=== PATIENT | male | born 1960 | race Caucasian/White ===

== ENCOUNTER 2017-12-02 20:44 | Emergency (ER) | payer MEDICAID ==
[~2017-12-02] VITALS: Ht 172.7 cm; Wt 92.6 kg
[~2017-12-02 20:44] MED LIST: ALBU2.5V11 NEB; LOSA50TA6 PO; NIAC50TA4 PO; SIMV20TA PO
[2017-12-02] MEDS ORDERED: ONDANSETRON 2MG/ML, 2ML ONE ×2 (21:21→22:37)
[2017-12-02 21:28] LABS: BASOPHILS # (AUTO) 0.05 x10^3/uL (0-0.1); BASOPHILS % (AUTO) 0 % (0-1); EOSINOPHILS # (AUTO) 0.51 x10^3/uL (0-0.4); EOSINOPHILS % (AUTO) 4 % (1-7); LYMPHOCYTES # (AUTO) 2.09 x10^3/uL (1-3.4); LYMPHOCYTES % (AUTO) 16 % (22-44); MD NO; MEAN CORPUSCULAR HEMOGLOBIN 29.3 pg (27.5-34.5); MEAN CORPUSCULAR VOLUME 86.2 fL (81-97); MEAN PLATELET VOLUME 8.3 fL (7.4-10.4); MONOCYTES # (AUTO) 1.15 x10^3/uL (0.2-0.8); MONOCYTES % (AUTO) 9 % (2-9); NEUTROPHILS # (AUTO) 9.19 x10^3/uL (1.8-6.8); NEUTROPHILS % (AUTO) 71 % (42-75); PLATELET COUNT 243 x10^3/uL (130-400); RED BLOOD COUNT 5.36 x10^6/uL (4.38-5.82); RED CELL DISTRIBUTION WIDTH 12.8 % (9.4-14.8)
[2017-12-02] MEDS ORDERED: SODIUM CHLORIDE 0.9% 1,000ML IVBOLUS ONE (21:30)
[2017-12-02] MEDS ORDERED: ONDANSETRON 2MG/ML, 2ML IVPush ONE ×2 (21:30→22:30)
[2017-12-02 21:39] LABS: ALBUMIN 3.9 g/dL (3.4-5.0); ANION GAP 11 mmol/L (5-15); CALCIUM 9.2 mg/dL (8.5-10.1); CHLORIDE 105 mmol/L (98-107)
[2017-12-02 21:42] LABS: ALANINE AMINOTRANSFERASE 32 U/L (12-78); ALKALINE PHOSPHATASE 62 U/L (45-117); BILIRUBIN,TOTAL 0.8 mg/dL (0.2-1.0); CREATININE 1.32 mg/dL (0.7-1.3); TOTAL PROTEIN 7.6 g/dL (6.4-8.2)
[2017-12-02 21:49] LABS: MICROSCOPIC NOT IND
[2017-12-02 21:56] LABS: CULTURE INDICATED? NO
[2017-12-02 22:29] VITALS: BP 136/88
[2017-12-02] MEDS ORDERED: KETOROLAC 30 MG/1 ML ONE (23:10)
[2017-12-02] MEDS ORDERED: KETOROLAC 30 MG/1 ML IVPush ONE (23:30)
== END 2017-12-03 00:13 | disposition home or self-care (01) ==
LOC: ED 23:33
DX: A09 Infectious gastroenteritis and colitis, unspecified (principal); E78.00 Pure hypercholesterolemia, unspecified; J45.909 Unspecified asthma, uncomplicated
CPT/HCPCS: 36415; 80053; 81003; 83690; 85025; 96361; 96374; 96375; 96376; 99284; J1885; J2405; J7030

== ENCOUNTER 2018-05-15 03:33 | Emergency (ER) | payer MEDICAID ==
[~2018-05-15] VITALS: Ht 172.7 cm; Wt 92.2 kg
[2018-05-15] MEDS ORDERED: ALBUTEROL/IPRATROPIUM 2.5MG/0.5MG, 3 ML ONE ×2 (04:07)
[2018-05-15 04:13] LABS: BASOPHILS # (AUTO) 0.06 x10^3/uL (0-0.1); BASOPHILS % (AUTO) 1 % (0-1); EOSINOPHILS # (AUTO) 0.25 x10^3/uL (0-0.4); EOSINOPHILS % (AUTO) 3 % (1-7); LYMPHOCYTES # (AUTO) 2.99 x10^3/uL (1-3.4); LYMPHOCYTES % (AUTO) 31 % (22-44); MD NO; MEAN CORPUSCULAR HEMOGLOBIN 29.2 pg (27.5-34.5); MEAN CORPUSCULAR HGB CONC 34.3 g/dL (33.2-36.2); MEAN CORPUSCULAR VOLUME 85.3 fL (81-97); MEAN PLATELET VOLUME 7.4 fL (7.4-10.4); MONOCYTES # (AUTO) 0.85 x10^3/uL (0.2-0.8); MONOCYTES % (AUTO) 9 % (2-9); NEUTROPHILS # (AUTO) 5.58 x10^3/uL (1.8-6.8); NEUTROPHILS % (AUTO) 57 % (42-75); PLATELET COUNT 293 x10^3/uL (130-400); RED BLOOD COUNT 5.34 x10^6/uL (4.38-5.82); RED CELL DISTRIBUTION WIDTH 13.6 % (9.4-14.8)
[2018-05-15] MEDS: ALBUTEROL/IPRATROPIUM 2.5MG/0.5MG, 3 ML NPPB SCH ×2 (04:16→04:32)
[2018-05-15 04:18] LABS: ALANINE AMINOTRANSFERASE 31 U/L (12-78); ALBUMIN 3.5 g/dL (3.4-5.0); ANION GAP 9 mmol/L (5-15); CALCIUM 8.4 mg/dL (8.5-10.1); CHLORIDE 110 mmol/L (98-107); CREATININE 1.35 mg/dL (0.7-1.3)
[2018-05-15 04:22] LABS: ALKALINE PHOSPHATASE 77 U/L (45-117); BILIRUBIN,TOTAL 0.7 mg/dL (0.2-1.0); TOTAL PROTEIN 6.9 g/dL (6.4-8.2); TROPONIN I < 0.015 ng/mL (0.000-0.045)
[2018-05-15 05:02] VITALS: BP 157/100
== END 2018-05-15 05:16 | disposition home or self-care (01) ==
LOC: ED 05:10
DX: J45.41 Moderate persistent asthma with (acute) exacerbation (principal); J20.9 Acute bronchitis, unspecified
CPT/HCPCS: 36415; 71046; 80053; 83880; 84484; 85025; 93005; 94640; 99285; J7512; J7620

== ENCOUNTER 2020-02-12 19:09 | Emergency (ER) | payer MEDICAID ==
[~2020-02-12] VITALS: Ht 172.7 cm; Wt 89.3 kg
[~2020-02-12 19:09] MED LIST changes: +LOSA50TA14 PO; -LOSA50TA6 PO
[2020-02-12 19:30] VITALS: BP 155/102
[2020-02-12] MEDS ORDERED: INSULIN LISPRO SINGLE DOSE, ER SQ-INSULIN ONE (20:28)
[2020-02-12] MEDS ORDERED: SODIUM CHLORIDE 0.9% 1,000ML IVBOLUS ONE (20:30)
[2020-02-12 20:37] LABS: BASOPHILS % (AUTO) 0 % (0-1); EOSINOPHILS # (AUTO) 0.07 x10^3/uL (0-0.4); EOSINOPHILS % (AUTO) 1 % (1-7); LYMPHOCYTES # (AUTO) 0.98 x10^3/uL (1-3.4); LYMPHOCYTES % (AUTO) 9 % (22-44); MD NO; MEAN CORPUSCULAR HEMOGLOBIN 29.7 pg (27.5-34.5); MEAN CORPUSCULAR HGB CONC 34.7 g/dL (33.2-36.2); MEAN CORPUSCULAR VOLUME 85.5 fL (81-97); MEAN PLATELET VOLUME 8.4 fL (7.4-10.4); MONOCYTES # (AUTO) 0.76 x10^3/uL (0.2-0.8); MONOCYTES % (AUTO) 7 % (2-9); NEUTROPHILS # (AUTO) 9.53 x10^3/uL (1.8-6.8); NEUTROPHILS % (AUTO) 84 % (42-75); PLATELET COUNT 249 x10^3/uL (130-400); RED BLOOD COUNT 5.37 x10^6/uL (4.38-5.82); RED CELL DISTRIBUTION WIDTH 12.5 % (9.4-14.8)
[2020-02-12 20:48] LABS: ALBUMIN 3.6 g/dL (3.4-5.0); ANION GAP 11 mmol/L (5-15); CALCIUM 8.6 mg/dL (8.5-10.1); CHLORIDE 97 mmol/L (98-107)
[2020-02-12 20:51] LABS: ALANINE AMINOTRANSFERASE 43 U/L (12-78); ALKALINE PHOSPHATASE 93 U/L (45-117); BILIRUBIN,TOTAL 0.5 mg/dL (0.2-1.0); CREATININE 1.53 mg/dL (0.7-1.3); TOTAL PROTEIN 7.1 g/dL (6.4-8.2)
[2020-02-12] MEDS ORDERED: SODIUM CHLORIDE 0.9%, 500ML IVBOLUS ONE (21:00)
[2020-02-12 21:04] LABS: MICROSCOPIC NOT IND
[2020-02-12 21:11] LABS: CULTURE INDICATED? NO
[2020-02-13] MEDS ORDERED: INSULIN LISPRO 100 UNIT/ML, 3ML VIAL SQ-INSULIN SCH (07:00)
== END 2020-02-12 22:38 | disposition home or self-care (01) ==
LOC: ED 22:00
DX: E11.65 Type 2 diabetes mellitus with hyperglycemia (principal); I10 Essential (primary) hypertension; J45.909 Unspecified asthma, uncomplicated
CPT/HCPCS: 36415; 80053; 81003; 82962; 83036; 85025; 99283; J7030; J7040

== ENCOUNTER 2020-04-24 11:33 | Inpatient (IN) | payer MEDICAID ==
[~2020-04-24] VITALS: Ht 172.7 cm; Wt 198.0 kg
[2020-04-24] MEDS ORDERED: BIVALIRUDIN 250 MG ONE ×2 (11:36→12:40)
[2020-04-24] MEDS ORDERED: VERAPAMIL 2.5 MG/ML, 2ML ONE (11:36)
[2020-04-24] MEDS ORDERED: FENTANYL PF 100 MCG/2ML ONE (11:36)
[2020-04-24] MEDS ORDERED: LIDOCAINE 2%, 20ML ONE (11:36)
[2020-04-24] MEDS ORDERED: TICAGRELOR 90 MG TABLET ONE (11:36)
[2020-04-24] MEDS ORDERED: MIDAZOLAM 1 MG/ML, 5ML ONE (11:36)
[2020-04-24] MEDS ORDERED: HEPARIN 1,000 UNITS/ML, 10ML ONE (11:36)
--- NOTE | 2020-04-24 11:38 | NUR ---
THIS IS A 59 YEAR OLD MALE WHO WAS BIB BY AMBULANCE DUE TO STEMI. PT BECAME DIAPHORTIC ALONG WITH CP. PT HAS HX OF DM, HTN. PLACED PATIENT ON INSPECTOR FINAL ASSEMBLY MECHANICAL, SINUS, PADS, CONTINOUS SPO2 AND CYCLE VS. PT WAS GIVEN 324 ASA AND 2 NTG. PT STATES PAIN IS 8/10
--- NOTE | 2020-04-24 11:40 | NUR ---
MT: STEMI NOTE - [facility] REPORT CALLED 1126 CODE CARDIAC INITAITED 1128 CARDIOLOGY PAGED 1129 PT ARRIVED 1131 LAST INSERTER AWARE 1132 LAST INSERTER READY 1139
--- NOTE | 2020-04-24 11:42 | NUR ---
THROUGHPUT RN: ATTEMPT 1 TO CALL PT , PER PT REQUEST. MESSAGE LEFT.
--- NOTE | 2020-04-24 11:42 | NUR ---
CLEARANCE REPRESENTATIVE READY, PT TO CLEARANCE REPRESENTATIVE WITH STAFF
[2020-04-24] MEDS ORDERED: METF500T17 PO (11:44)
[2020-04-24 11:47] LABS: BASOPHILS # (AUTO) 0.06 x10^3/uL (0-0.1); BASOPHILS % (AUTO) 1 % (0-1); EOSINOPHILS # (AUTO) 0.38 x10^3/uL (0-0.4); EOSINOPHILS % (AUTO) 5 % (1-7); LYMPHOCYTES # (AUTO) 2.95 x10^3/uL (1-3.4); LYMPHOCYTES % (AUTO) 39 % (22-44); MD NO; MEAN CORPUSCULAR HEMOGLOBIN 29.3 pg (27.5-34.5); MEAN CORPUSCULAR VOLUME 86.2 fL (81-97); MEAN PLATELET VOLUME 8.1 fL (7.4-10.4); MONOCYTES # (AUTO) 0.84 x10^3/uL (0.2-0.8); MONOCYTES % (AUTO) 11 % (2-9); NEUTROPHILS % (AUTO) 45 % (42-75); PLATELET COUNT 224 x10^3/uL (130-400); RED BLOOD COUNT 4.95 x10^6/uL (4.38-5.82); RED CELL DISTRIBUTION WIDTH 12.8 % (9.4-14.8)
[2020-04-24 11:58] LABS: INTERNATIONAL NORMALIZED RATIO 0.92 (0.93-1.1); PROTHROMBIN TIME 9.7 Seconds (9.6-11.5)
[2020-04-24 12:00] LABS: TROPONIN I < 0.015 ng/mL (0.000-0.045)
[2020-04-24] MEDS ORDERED: BIVALIRUDIN 250 MG in SODIUM CHLORIDE 0.9% 50 ML IV SCH (12:39)
[2020-04-24] MEDS ORDERED: LABETALOL 5MG/ML, 20ML IVPush PRN (13:00)
[2020-04-24] MEDS ORDERED: BISACODYL 10 MG SUPP PR PRN (13:00)
[2020-04-24] MEDS ORDERED: ONDANSETRON 2MG/ML, 2ML IVPush PRN (13:00)
[2020-04-24] MEDS ORDERED: ENALAPRILAT 1.25 MG/ML, 2ML IVPush PRN (13:00)
[2020-04-24] MEDS ORDERED: POLYETHYLENE GLYCOL 17 GM PACKET PO PRN (13:00)
[2020-04-24] MEDS ORDERED: OXYcodone IR 5MG TABLET PO PRN (13:00)
[2020-04-24] MEDS ORDERED: morphine SULFATE 10 MG/ML, 1ML IVPush PRN (13:00)
[2020-04-24] MEDS: SODIUM CHLORIDE 0.9% 1,000 ML IV SCH ×2 (14:34→20:39)
[2020-04-24] MEDS: INSULIN LISPRO 100 UNITS/ML, PEN SQ-INSULIN SCH ×2 (15:59→20:38)
[2020-04-24] MEDS: HEPARIN 5,000 UNITS/ML, 1ML SQ SCH ×2 (15:59→23:43)
[2020-04-24] MEDS: ACETAMINOPHEN 325 MG TABLET PO PRN ×2 (15:59→22:23)
[2020-04-24] MEDS: TICAGRELOR 90 MG TABLET PO SCH (20:35)
[2020-04-24 20:42] VITALS: BP 140/95
[2020-04-24] MEDS: DIPHENHYDRAMINE 25 MG CAPSULE PO PRN (22:21)
[2020-04-25 04:00] VITALS: BP 142/96
[2020-04-25] MEDS: SODIUM CHLORIDE 0.9% 1,000 ML IV SCH (04:39)
[2020-04-25 04:47] LABS: BASOPHILS # (AUTO) 0.04 x10^3/uL (0-0.1); BASOPHILS % (AUTO) 0 % (0-1); EOSINOPHILS # (AUTO) 0.35 x10^3/uL (0-0.4); EOSINOPHILS % (AUTO) 4 % (1-7); LYMPHOCYTES # (AUTO) 1.74 x10^3/uL (1-3.4); LYMPHOCYTES % (AUTO) 20 % (22-44); MD NO; MEAN CORPUSCULAR HEMOGLOBIN 28.9 pg (27.5-34.5); MEAN CORPUSCULAR HGB CONC 33.5 g/dL (33.2-36.2); MEAN CORPUSCULAR VOLUME 86.1 fL (81-97); MEAN PLATELET VOLUME 8.4 fL (7.4-10.4); MONOCYTES # (AUTO) 0.84 x10^3/uL (0.2-0.8); MONOCYTES % (AUTO) 10 % (2-9); NEUTROPHILS # (AUTO) 5.81 x10^3/uL (1.8-6.8); NEUTROPHILS % (AUTO) 66 % (42-75); PLATELET COUNT 212 x10^3/uL (130-400)
[2020-04-25] MEDS: ACETAMINOPHEN 325 MG TABLET PO PRN ×3 (04:49→20:41)
[2020-04-25 04:55] LABS: ALBUMIN 3.7 g/dL (3.4-5.0); ANION GAP 8 mmol/L (5-15); CALCIUM 8.6 mg/dL (8.5-10.1); CHLORIDE 107 mmol/L (98-107)
[2020-04-25 05:00] LABS: ALANINE AMINOTRANSFERASE 66 U/L (12-78); ALKALINE PHOSPHATASE 51 U/L (45-117); BILIRUBIN,TOTAL 0.9 mg/dL (0.2-1.0); CHOL/HDL RATIO 5.5; CHOLESTEROL, TOTAL 171 mg/dL (140-239); CREATININE 1.14 mg/dL (0.7-1.3); HDL CHOL % 18 % (26-37); HDL CHOLESTEROL (DIRECT) 31 mg/dL (40-60); TOTAL PROTEIN 7.1 g/dL (6.4-8.2); TRIGLYCERIDES 717 mg/dL (50-200)
[2020-04-25] MEDS: INSULIN LISPRO 100 UNITS/ML, PEN SQ-INSULIN SCH ×4 (07:00→20:43)
[2020-04-25] MEDS ORDERED: METOPROLOL TARTRATE 25 MG TAB ONE (08:21)
[2020-04-25] MEDS: ASPIRIN 81 MG TABLET EC PO SCH (08:26)
[2020-04-25] MEDS: SENNA/DOCUSATE TABLET PO SCH (08:26)
[2020-04-25] MEDS: TICAGRELOR 90 MG TABLET PO SCH ×2 (08:26→20:42)
[2020-04-25] MEDS: HEPARIN 5,000 UNITS/ML, 1ML SQ SCH ×2 (08:27→15:40)
[2020-04-25] MEDS: METOPROLOL TARTRATE 25 MG TAB PO SCH ×2 (08:27→18:07)
[2020-04-25] MEDS: LOSARTAN 50MG TABLET PO SCH (10:33)
[2020-04-25 19:19] VITALS: BP 154/96
[2020-04-25] MEDS: DIPHENHYDRAMINE 25 MG CAPSULE PO PRN (20:42)
[2020-04-25] MEDS: ATORVASTATIN 80 MG TABLET PO SCH (20:42)
[2020-04-26 00:51] VITALS: BP 112/74
[2020-04-26] MEDS: HEPARIN 5,000 UNITS/ML, 1ML SQ SCH ×2 (01:04→08:00)
[2020-04-26] MEDS: ACETAMINOPHEN 325 MG TABLET PO PRN ×2 (01:07→14:43)
[2020-04-26 06:11] VITALS: BP 138/91
[2020-04-26] MEDS: METOPROLOL TARTRATE 25 MG TAB PO SCH ×2 (06:16→18:27)
[2020-04-26] MEDS: INSULIN LISPRO 100 UNITS/ML, PEN SQ-INSULIN SCH ×4 (07:00→21:25)
[2020-04-26 08:25] VITALS: BP 114/79
[2020-04-26] MEDS: SENNA/DOCUSATE TABLET PO SCH (09:14)
[2020-04-26] MEDS: LOSARTAN 50MG TABLET PO SCH (09:14)
[2020-04-26] MEDS: TICAGRELOR 90 MG TABLET PO SCH ×2 (09:14→21:08)
[2020-04-26] MEDS: ASPIRIN 81 MG TABLET EC PO SCH (09:33)
[2020-04-26 13:45] VITALS: BP 108/69
[2020-04-26 19:22] VITALS: BP 113/75
[2020-04-26] MEDS: ATORVASTATIN 80 MG TABLET PO SCH (21:08)
[2020-04-27 01:29] VITALS: BP 107/74
[2020-04-27] MEDS: METOPROLOL TARTRATE 25 MG TAB PO SCH (06:22)
[2020-04-27 06:36] VITALS: BP 114/80
[2020-04-27] MEDS: ASPIRIN 81 MG TABLET EC PO SCH (08:31)
[2020-04-27] MEDS: INSULIN LISPRO 100 UNITS/ML, PEN SQ-INSULIN SCH ×2 (08:31→11:11)
[2020-04-27] MEDS: TICAGRELOR 90 MG TABLET PO SCH (08:32)
[2020-04-27] MEDS: LOSARTAN 50MG TABLET PO SCH (08:32)
[2020-04-27] MEDS: SENNA/DOCUSATE TABLET PO SCH (09:02)
[2020-04-27] MEDS ORDERED: ASPI81TA45 PO (10:21)
[2020-04-27] MEDS ORDERED: METO25TA35 PO (10:21)
[2020-04-27] MEDS ORDERED: TICA90TA PO (10:21)
[2020-04-27] MEDS ORDERED: LOSA50TA2 PO (10:21)
[2020-04-27] MEDS ORDERED: ATOR-2 PO (10:21)
== END 2020-04-27 12:04 | disposition home or self-care (01) | DRG 247 ==
LOC: ED 11:54 → EDIP 12:05 → CCU 12:40 → 5SO 04-25 17:14 → DCLOUNGE 04-27 11:50
PROVIDERS: ADMIT Internal Medicine; ATTEND Internal Medicine
PROC: 027035Z Dilation of Coronary Artery, One Artery with Two Drug-eluting Intraluminal Devices, Percutaneous Approach (ICD-10-PCS; principal; 2020-04-24)
PROC: 4A023N7 Measurement of Cardiac Sampling and Pressure, Left Heart, Percutaneous Approach (ICD-10-PCS; 2020-04-24)
PROC: B2111ZZ Fluoroscopy of Multiple Coronary Arteries using Low Osmolar Contrast (ICD-10-PCS; 2020-04-24)
PROC: B2151ZZ Fluoroscopy of Left Heart using Low Osmolar Contrast (ICD-10-PCS; 2020-04-24)
PROC: B41G1ZZ Fluoroscopy of Left Lower Extremity Arteries using Low Osmolar Contrast (ICD-10-PCS; 2020-04-24)
DX: I21.09 ST elevation (STEMI) myocardial infarction involving other coronary artery of anterior wall (principal); E11.9 Type 2 diabetes mellitus without complications; E78.00 Pure hypercholesterolemia, unspecified; E78.1 Pure hyperglyceridemia; E78.5 Hyperlipidemia, unspecified; E87.6 Hypokalemia; I10 Essential (primary) hypertension; I25.10 Atherosclerotic heart disease of native coronary artery without angina pectoris; J45.909 Unspecified asthma, uncomplicated; Z79.4 Long term (current) use of insulin; Z79.899 Other long term (current) drug therapy; Z82.49 Family history of ischemic heart disease and other diseases of the circulatory system; Z87.891 Personal history of nicotine dependence; Z88.0 Allergy status to penicillin; Z91.018 Allergy to other foods
CPT/HCPCS: 36415; 93458; J3490; 71045; 80047; 80053; 80061; 82962; 84484; 85025; 85610; 85730; 87081; 93005; 96374; 99156; 99157; 99285; C1760; C1894; G0378; J0583; J1644; J2250; J3010; C1725; C1769; C1874; C1887; J1815; J2270; J7030; Q0163; Q9967

== ENCOUNTER 2020-08-02 12:51 | Emergency (ER) | payer MEDICAID ==
[~2020-08-02] VITALS: Ht 172.7 cm; Wt 92.1 kg
[~2020-08-02 12:51] MED LIST changes: +ASPI81TA45 PO; +ATOR-2 PO; +LOSA50TA2 PO; +METF500T17 PO; +METO25TA35 PO; +TICA90TA PO
[2020-08-02 12:58] VITALS: BP 138/85
[2020-08-02] MEDS ORDERED: DIPHENHYDRAMINE 25 MG CAPSULE PO ONE (14:00)
[2020-08-02] MEDS ORDERED: FAMOTIDINE 20 MG TABLET PO ONE (14:00)
--- NOTE | 2020-08-02 14:54 | NUR ---
PT STATES HE RECEIVED DOSES OF ZANTAC AND PEPCID AT [facility] OR [facility] AND [facility]IG[facility]. ALSO STATES THAT A DOSE OF STEROIDS WAS RESPONSIBLE FOR HIM BEING HOSPITALIZED IN THE PAST DUE TO SPIKE IN BG. PT TREPIDATIOUS ABOUT TAKING AT THIS TIME. DENIES ANY FURTHER NEEDS, CALL LIGHT IN REACH.
== END 2020-08-02 15:38 | disposition home or self-care (01) ==
LOC: ED 13:00
DX: R21 Rash and other nonspecific skin eruption (principal); T78.49XA Other allergy, initial encounter; I10 Essential (primary) hypertension; E11.9 Type 2 diabetes mellitus without complications; I25.2 Old myocardial infarction; E78.00 Pure hypercholesterolemia, unspecified; J45.909 Unspecified asthma, uncomplicated
CPT/HCPCS: 99283

== ENCOUNTER 2020-09-21 13:03 | Emergency (ER) | payer MEDICAID ==
[~2020-09-21] VITALS: Ht 172.7 cm; Wt 91.6 kg
[2020-09-21 13:10] VITALS: BP 134/90
== END 2020-09-21 13:51 | disposition home or self-care (01) ==
LOC: ED 13:40
DX: S40.021A Contusion of right upper arm, initial encounter (principal); E11.9 Type 2 diabetes mellitus without complications; I10 Essential (primary) hypertension; I25.2 Old myocardial infarction; J45.909 Unspecified asthma, uncomplicated; E78.00 Pure hypercholesterolemia, unspecified; X58.XXXA Exposure to other specified factors, initial encounter; Y93.89 Activity, other specified; Y92.89 Other specified places as the place of occurrence of the external cause; Y99.8 Other external cause status
CPT/HCPCS: 99281

== ENCOUNTER 2021-06-17 23:51 | Emergency (ER) | payer MEDICAID ==
[~2021-06-17] VITALS: Ht 172.7 cm; Wt 89.0 kg
--- NOTE | 2021-06-18 03:19 | NUR ---
PT TO ROOM AT THIS TIME AMB STEADY GAIT NADN
[2021-06-18 03:36] VITALS: BP 137/95
== END 2021-06-18 06:22 | disposition home or self-care (01) ==
LOC: ED 06-18 05:05
DX: J45.31 Mild persistent asthma with (acute) exacerbation (principal); R94.31 Abnormal electrocardiogram [ECG] [EKG]; I25.2 Old myocardial infarction; I10 Essential (primary) hypertension; E78.00 Pure hypercholesterolemia, unspecified
CPT/HCPCS: 71045; 93005; 99283

== ENCOUNTER 2021-08-08 16:46 | Emergency (ER) | payer MEDICAID ==
--- NOTE | 2021-08-08 17:12 | NUR ---
NA from bob at 1714.
== END 2021-08-08 17:21 | disposition left against medical advice (07) ==
LOC: ED 17:00
DX: M79.602 Pain in left arm (principal); Z53.21 Procedure and treatment not carried out due to patient leaving prior to being seen by health care provider